=== PATIENT | female | born 1975 | race Hispanic/Latino ===

== ENCOUNTER 2023-06-27 19:18 | Emergency (ER) | payer OTHER, SELFPAY ==
[2023-06-27] MEDS ORDERED: Ipratropium/Albuterol 3 ML NEB ONE (20:22)
== END 2023-06-27 21:46 | disposition home or self-care (01) ==
LOC: CSHERS 19:18
DX: J20.9 Acute bronchitis, unspecified (principal); R06.2 Wheezing
CPT/HCPCS: 71046; 94640; 94760; J7620